=== PATIENT | female | born 1995 | race Two or more races ===

== ENCOUNTER 2020-11-09 16:09 | Emergency (ER) | payer OTHER ==
--- NOTE | 2020-11-09 17:13 | CR ---
[id number] RAD/RAD Elbow Right 3V Min EXAM: 4 VIEWS RIGHT ELBOW. INDICATION: INJURED AT WORK,POSTERIOR ELBOW PAIN. COMPARISON: None. DISCUSSION: No fracture, dislocation or other osseous abnormality. IMPRESSION: 1. Negative exam. Faraz Bourne DO 11/09/20 [id number] Thank you for allowing us to participate in the care of your patient.
--- NOTE | 2020-11-09 17:17 | EDM.PDOC ---
ED HPI GENERAL MEDICAL PROBLEM - General Stated Complaint: INJURY TO R ELBOW Time Seen by Provider: 11/09/20 16:15 Source of Information: Reports: Patient History Limitations: Reports: No Limitations - History of Present Illness INITIAL COMMENTS - FREE TEXT/NARRATIVE: Pt. states that she was pushing something at work today and experienced acute, tearing type pain in the R elbow. Denies any high impact injury. No numbness/tingling in the distal portion of the extremity. Denies any injury elsewhere. Pt. states that the discomfort is worse when she writes. She states that the discomfort is minimal at rest. Denies any previous injury to this joint. Denies any injury other than what is isolated to the R elbow. Onset: Today Location: Reports: Upper Extremity, Right Severity: Moderate - Related Data Allergies Allergy/AdvReac Type Severity Reaction Status Date / Time mold Allergy Cough Verified 06/24/15 01:06 Home Meds: Home Meds Levonorgestrel/Ethin.estradiol [Falmina-28 Tablet] 1 tab DAILY 09/25/18 [History] buPROPion HCL [buPROPion SR] 200 mg BID 09/25/18 [History] Past Medical History Other HEENT History: wears glasses Other Cardiovascular History: chest pains Other Musculoskeletal History: 3 and 4 vertebrea fused ED ROS GENERAL - Review of Systems Review Of Systems: See Below Constitutional: Reports: No Symptoms HEENT: Reports: No Symptoms Respiratory: Reports: No Symptoms Cardiovascular: Reports: No Symptoms Endocrine: Reports: No Symptoms GI/Abdominal: Reports: No Symptoms : Reports: No Symptoms Musculoskeletal: Reports: Arm Pain Skin: Reports: No Symptoms Neurological: Reports: No Symptoms Psychiatric: Reports: No Symptoms Hematologic/Lymphatic: Reports: No Symptoms Immunologic: Reports: No Symptoms ED EXAM, GENERAL - Physical Exam Exam: See Below Exam Limited By: No Limitations General Appearance: Alert, WD/WN, No Apparent Distress Extremities: Normal Inspection, Normal Range of Motion (mild tenderness on palp of posterior aspect of elbow. No deformity. CMS intact.), Other Course - Radiology Interpretation Free Text/Narrative:: No fracture noted. Departure - Departure Time of Disposition: 17:00 Disposition: Home, Self-Care 01 Clinical Impression: Elbow sprain - Discharge Information Instructions: Elbow Sprain Referrals: Jalen Vivas MD [Primary Care Provider] - Additional Instructions: No fracture was noted on the x-ray. Ice the elbow for 10 min every hour Ibuprofen 200mg 3 tabs every 6 hours If you are still not improving, follow-up in the clinic in 7-10 days for further evaluation/imaging. - Problem List Review Problem List Initiated/Reviewed/Updated: Yes - Assessment/Plan Plan: No fracture was noted on the x-ray. Ice the elbow for 10 min every hour Ibuprofen 200mg 3 tabs every 6 hours If you are still not improving, follow-up in the clinic in 7-10 days for further evaluation/imaging.
[2020-11-09 20:10] VITALS: BP 129/77; PULSE 78
== END 2020-11-09 17:35 | disposition home or self-care (01) ==
LOC: VM.ED 16:09
DX: S53.401A Unspecified sprain of right elbow, initial encounter (principal); Z91.048 Other nonmedicinal substance allergy status; X58.XXXA Exposure to other specified factors, initial encounter; Y92.89 Other specified places as the place of occurrence of the external cause; Y99.0 Civilian activity done for income or pay
CPT/HCPCS: 73080-RT; 99283

== ENCOUNTER 2022-05-02 17:34 | Emergency (ER) | payer OTHER ==
[2022-05-02] MEDS ORDERED: GI Cocktail Oral Solution 30 ML PO ONE (18:05)
[2022-05-02 18:35] VITALS: BP 126/87; PULSE 104
[2022-05-02 18:45] LABS: ANION GAP 15.9 mmol/L (5-15); CHLORIDE,CL 101 mmol/L (98-107); ESTIMATED GFR 125 mL/min (>=60); SODIUM,NA 140 mmol/L (136-145)
== END 2022-05-02 19:05 | disposition home or self-care (01) ==
LOC: VM.ED 17:34
DX: K29.70 Gastritis, unspecified, without bleeding (principal); Z91.048 Other nonmedicinal substance allergy status
CPT/HCPCS: 36415; 80053; 81001; 82150; 83690; 85025; 86140; 87086; 99283; 99284; A9270-GY

== ENCOUNTER 2023-10-05 11:28 | Emergency (ER) | payer OTHER ==
[2023-10-05 12:04] LABS: BASOPHILS PERCENT AUTO 0.1 % (0.2-1.2); EOSINOPHILS ABSOLUTE AUTO 0.1 x10^3/uL (0.0-0.5); EOSINOPHILS PERCENT AUTO 0.9 % (0.0-4.0); HEMATOCRIT 37.2 % (33.0-47.0); HEMOGLOBIN 12.6 g/dL (12.0-16.0); IMMATURE GRAN ABSOLUTE AUTO 0.01 x10^3/uL (0.00-0.07); LYMPHOCYTES ABSOLUTE AUTO 1.6 x10^3/uL (1.0-4.8); LYMPHOCYTES PERCENT AUTO 23.5 % (25.0-50.0); MEAN CORPUSCULAR HEMOGLOBIN 30.1 pg (26.0-32.0); MEAN CORPUSCULAR HGB CONC 33.9 g/dL (32.0-36.0); MEAN CORPUSCULAR VOLUME 88.8 fL (78.0-93.0); MONOCYTES ABSOLUTE AUTO 0.5 x10^3/uL (0.0-0.8); MONOCYTES PERCENT AUTO 7.7 % (2.0-11.0); NEUTROPHILS ABSOLUTE AUTO 4.7 x10^3/uL (1.8-7.7); NEUTROPHILS PERCENT AUTO 67.7 % (50.0-80.0); PLATELET COUNT,PLT 237 x10^3/uL (130-400); RED BLOOD CELL COUNT 4.19 x10^6/uL (4.00-5.50); WHITE BLOOD CELL COUNT,WBC 6.9 x10^3/uL (4.0-10.0)
[2023-10-05 12:29] LABS: LACTIC ACID 0.9 mmol/L (0.4-2.0)
[2023-10-05 12:33] LABS: PROTHROMBIN TIME 10.7 SEC (9.5-12.2); PTT,PARTIAL THROMBOPLSTIN TIME 29.6 SEC (23.6-33.6)
[2023-10-05 12:36] LABS: A/G RATIO 0.93; ALANINE AMINOTRANSFERASE,ALT 60 U/L (14-59); ALBUMIN 3.8 g/dL (3.4-5.0); ALKALINE PHOSPHATASE 88 U/L (46-116); ASPARTATE AMNIOTRANSFERASE,AST 26 U/L (15-37); BILIRUBIN TOTAL 0.7 mg/dL (0.2-1.0); BLOOD UREA NITROGEN,BUN 14 mg/dL (7-18); CARBON DIOXIDE,CO2 31 mmol/L (21-32); CHLORIDE,CL 104 mmol/L (98-107); CREATININE 0.7 mg/dL (0.55-1.02); GLUCOSE RANDOM 104 mg/dL (70-99); POTASSIUM,K 4.2 mmol/L (3.5-5.1); PROTEIN TOTAL,TP 7.9 g/dL (6.4-8.2); SODIUM,NA 142 mmol/L (136-145)
[2023-10-05 12:37] LABS: ANION GAP 11.2 mmol/L (5-15); C-REACTIVE PROTEIN < 0.50 mg/dL (<=0.50); ESTIMATED GFR 120 mL/min (>=60)
[2023-10-05 12:42] LABS: CORONAVIRUS COVID-19 NAA NEGATIVE (NEGATIVE); INFLUENZA A NAA NEGATIVE (NEGATIVE); INFLUENZA B NAA NEGATIVE (NEGATIVE); RESPIRATORY SYNCYTIAL VIR NAA NEGATIVE (NEGATIVE)
[2023-10-05 12:47] LABS: AMPHETAMINES SCREEN, URINE NEGATIVE (NEGATIVE); BARBITURATE SCREEN,URINE NEGATIVE (NEGATIVE); BENZODIAZEPINES SCREEN,URINE NEGATIVE (NEGATIVE); BUPRENORPHINE SCREEN,URINE NEGATIVE (NEGATIVE); COCAINE METABOLITES,URINE NEGATIVE (NEGATIVE); METHADONE SCREEN, URINE NEGATIVE (NEGATIVE); METHAMPHETAMINE SCREEN, URINE NEGATIVE (NEGATIVE); OXYCODONE SCREEN,URINE NEGATIVE (NEGATIVE); PCP SCREEN,URINE NEGATIVE (NEGATIVE); THC SCREEN,URINE 50 NG/ML NEGATIVE (NEGATIVE)
[2023-10-05 12:48] LABS: ACETAMINOPHEN 0 ug/ml (10-30); ETHANOL BLOOD MEDICAL < 3 mg/dL (0-3)
[2023-10-05 13:30] VITALS: BP 114/75; PULSE 79
== END 2023-10-05 13:52 | disposition short-term general hospital (02) ==
LOC: VM.ED 11:28
DX: F32.A Depression, unspecified (principal); R44.3 Hallucinations, unspecified; F25.9 Schizoaffective disorder, unspecified; Z20.822 Contact with and (suspected) exposure to COVID-19; Z88.7 Allergy status to serum and vaccine; Z91.048 Other nonmedicinal substance allergy status
CPT/HCPCS: 0241U; 36415; 70450; 80053; 80143; 80179; 80305-QW; 80307; 81025; 82140; 83605; 83735; 84100; 84443; 84484; 85025; 85610; 85730; 86140; 93005; 93010; 99284; 99285

== ENCOUNTER 2024-06-21 08:03 | Emergency (ER) | payer OTHER ==
[2024-06-21 08:34] VITALS: BP 120/74; PULSE 78
[2024-06-21 08:49] LABS: BASOPHILS PERCENT AUTO 0.1 % (0.2-1.2); EOSINOPHILS PERCENT AUTO 0.1 % (0.0-4.0); HEMATOCRIT 34.1 % (33.0-47.0); HEMOGLOBIN 12.1 g/dL (12.0-16.0); IMMATURE GRAN ABSOLUTE AUTO 0.01 x10^3/uL (0.00-0.07); LYMPHOCYTES ABSOLUTE AUTO 1.3 x10^3/uL (1.0-4.8); LYMPHOCYTES PERCENT AUTO 12.7 % (25.0-50.0); MEAN CORPUSCULAR HEMOGLOBIN 29.9 pg (26.0-32.0); MEAN CORPUSCULAR HGB CONC 35.5 g/dL (32.0-36.0); MEAN CORPUSCULAR VOLUME 84.2 fL (78.0-93.0); MONOCYTES ABSOLUTE AUTO 0.4 x10^3/uL (0.0-0.8); MONOCYTES PERCENT AUTO 3.4 % (2.0-11.0); NEUTROPHILS ABSOLUTE AUTO 8.8 x10^3/uL (1.8-7.7); NEUTROPHILS PERCENT AUTO 83.6 % (50.0-80.0); PLATELET COUNT,PLT 244 x10^3/uL (130-400); RED BLOOD CELL COUNT 4.05 x10^6/uL (4.00-5.50); WHITE BLOOD CELL COUNT,WBC 10.5 x10^3/uL (4.0-10.0)
[2024-06-21 08:54] LABS: AMPHETAMINES SCREEN, URINE NEGATIVE (NEGATIVE); BARBITURATE SCREEN,URINE NEGATIVE (NEGATIVE); BENZODIAZEPINES SCREEN,URINE NEGATIVE (NEGATIVE); BUPRENORPHINE SCREEN,URINE NEGATIVE (NEGATIVE); COCAINE METABOLITES,URINE NEGATIVE (NEGATIVE); METHADONE SCREEN, URINE NEGATIVE (NEGATIVE); METHAMPHETAMINE SCREEN, URINE NEGATIVE (NEGATIVE); OXYCODONE SCREEN,URINE NEGATIVE (NEGATIVE); PCP SCREEN,URINE NEGATIVE (NEGATIVE); THC SCREEN,URINE 50 NG/ML NEGATIVE (NEGATIVE)
[2024-06-21 09:16] LABS: A/G RATIO 0.97; ALANINE AMINOTRANSFERASE,ALT 26 U/L (14-59); ALBUMIN 3.8 g/dL (3.4-5.0); ALKALINE PHOSPHATASE 114 U/L (46-116); ASPARTATE AMNIOTRANSFERASE,AST 17 U/L (15-37); BILIRUBIN TOTAL 0.8 mg/dL (0.2-1.0); BLOOD UREA NITROGEN,BUN 10 mg/dL (7-18); CALCIUM 8.9 mg/dL (8.5-10.1); CARBON DIOXIDE,CO2 28 mmol/L (21-32); CHLORIDE,CL 100 mmol/L (98-107); CREATININE 0.8 mg/dL (0.55-1.02); ETHANOL BLOOD MEDICAL 3 mg/dL (0-3); GLUCOSE RANDOM 111 mg/dL (70-99); MAGNESIUM 1.9 mg/dL (1.8-2.4); POTASSIUM,K 3.6 mmol/L (3.5-5.1); PROTEIN TOTAL,TP 7.7 g/dL (6.4-8.2); SODIUM,NA 138 mmol/L (136-145); TSH ULTRASENSITIVE 0.893 uIU/mL (0.358-3.74)
[2024-06-21 09:17] LABS: ACETAMINOPHEN 0 ug/ml (10-30); ANION GAP 13.6 mmol/L (5-15); C-REACTIVE PROTEIN < 0.50 mg/dL (<=0.50); ESTIMATED GFR 102 mL/min (>=60)
== END 2024-06-21 10:51 ==
LOC: VM.ED 08:03
DX: F25.9 Schizoaffective disorder, unspecified (principal); Z91.148 Patient's other noncompliance with medication regimen for other reason; Z86.16 Personal history of COVID-19; Z79.899 Other long term (current) drug therapy; Z91.048 Other nonmedicinal substance allergy status
CPT/HCPCS: 36415; 80053; 80143; 80179; 80305-QW; 80307; 81025; 83735; 84443; 85025; 86140; 99283; 99284

== ENCOUNTER 2024-07-10 13:46 | Emergency (ER) | payer OTHER ==
[2024-07-10 14:44] LABS: BASOPHILS PERCENT AUTO 0.2 % (0.2-1.2); EOSINOPHILS PERCENT AUTO 0.4 % (0.0-4.0); HEMATOCRIT 35.1 % (33.0-47.0); HEMOGLOBIN 12.3 g/dL (12.0-16.0); IMMATURE GRAN ABSOLUTE AUTO 0.01 x10^3/uL (0.00-0.07); LYMPHOCYTES ABSOLUTE AUTO 2.2 x10^3/uL (1.0-4.8); LYMPHOCYTES PERCENT AUTO 25.7 % (25.0-50.0); MEAN CORPUSCULAR HEMOGLOBIN 29.6 pg (26.0-32.0); MEAN CORPUSCULAR VOLUME 84.6 fL (78.0-93.0); MONOCYTES ABSOLUTE AUTO 0.7 x10^3/uL (0.0-0.8); MONOCYTES PERCENT AUTO 8.6 % (2.0-11.0); NEUTROPHILS ABSOLUTE AUTO 5.5 x10^3/uL (1.8-7.7); PLATELET COUNT,PLT 338 x10^3/uL (130-400); RED BLOOD CELL COUNT 4.15 x10^6/uL (4.00-5.50); WHITE BLOOD CELL COUNT,WBC 8.4 x10^3/uL (4.0-10.0)
[2024-07-10 15:01] LABS: ALANINE AMINOTRANSFERASE,ALT 38 U/L (14-59); ALKALINE PHOSPHATASE 104 U/L (46-116); ASPARTATE AMNIOTRANSFERASE,AST 19 U/L (15-37); BILIRUBIN TOTAL 0.7 mg/dL (0.2-1.0); BLOOD UREA NITROGEN,BUN 15 mg/dL (7-18); CALCIUM 9.3 mg/dL (8.5-10.1); CARBON DIOXIDE,CO2 28 mmol/L (21-32); CHLORIDE,CL 102 mmol/L (98-107); CREATININE 0.8 mg/dL (0.55-1.02); GLUCOSE RANDOM 111 mg/dL (70-99); LIPASE 40 U/L (19-71); POTASSIUM,K 3.9 mmol/L (3.5-5.1); SODIUM,NA 140 mmol/L (136-145)
[2024-07-10 15:03] LABS: ANION GAP 13.9 mmol/L (5-15); ESTIMATED GFR 102 mL/min (>=60); ETHANOL BLOOD MEDICAL < 3 mg/dL (0-3)
[2024-07-10 15:47] LABS: APPEARANCE,URINE SLIGHTLY CLOUDY (CLEAR); BILIRUBIN,URINE NEGATIVE (NEGATIVE); COLOR,URINE DARK YELLOW (YELLOW); GLUCOSE,URINE NEGATIVE (NEGATIVE); KETONES,URINE NEGATIVE (NEGATIVE); LEUKOCYTE ESTERASE,URINE TRACE (NEGATIVE); NITRITE,URINE NEGATIVE (NEGATIVE); OCCULT BLOOD,URINE LARGE (NEGATIVE); PH,URINE 6.5 (5.0-8.0); PROTEIN,URINE 30 mg/dL (NEGATIVE); UROBILINOGEN,URINE 0.2 EU/dL (0.2)
[2024-07-10 15:51] LABS: AMPHETAMINES SCREEN, URINE NEGATIVE (NEGATIVE); BARBITURATE SCREEN,URINE NEGATIVE (NEGATIVE); BUPRENORPHINE SCREEN,URINE NEGATIVE (NEGATIVE)
[2024-07-10 15:52] LABS: BENZODIAZEPINES SCREEN,URINE NEGATIVE (NEGATIVE); COCAINE METABOLITES,URINE NEGATIVE (NEGATIVE); METHADONE SCREEN, URINE NEGATIVE (NEGATIVE); METHAMPHETAMINE SCREEN, URINE NEGATIVE (NEGATIVE); OXYCODONE SCREEN,URINE NEGATIVE (NEGATIVE); PCP SCREEN,URINE NEGATIVE (NEGATIVE); THC SCREEN,URINE 50 NG/ML NEGATIVE (NEGATIVE)
[2024-07-10 16:07] LABS: AMORPHOUS SEDIMENT,URINE FEW; BACTERIA,URINE FEW /HPF (NOT SEEN); MUCUS,URINE MODERATE /LPF (NOT SEEN); SQUAMOUS EPITHELIAL CELLS,UR MANY /HPF (NOT SEEN); WBC,URINE 0-5 /HPF (NOT SEEN)
[2024-07-10 20:27] VITALS: BP 140/81; PULSE 101
== END 2024-07-10 19:35 ==
LOC: VM.ED 13:46
DX: F20.9 Schizophrenia, unspecified (principal); Z86.16 Personal history of COVID-19; Z91.048 Other nonmedicinal substance allergy status; Z88.9 Allergy status to unspecified drugs, medicaments and biological substances
CPT/HCPCS: 36415; 80053; 80305-QW; 80307; 81001; 81025; 83690; 85025; 99283; 99284